=== PATIENT | female | born 2000 | race African-American/Black ===

== ENCOUNTER 2024-12-19 00:40 | Day surgery (SDC) | payer OTHER, SELFPAY ==
--- NOTE | 2024-12-10 14:55 | SUR.PREOP ---
[facility] has started construction of its new state of the art ER which will open Spring 2026. With this, we anticipate parking may be a challenge for some our surgical patients and families. Parking spaces are limited but are available for all Surgical, obstetrics, and ER patients sharing this lot. If you arrive and find you are having a hard time finding a parking space, please note that we understand the challenges, please drive around the hospital and park near Hospital Entrance 1. When you enter this entrance, you can ask a volunteer to direct or take you back to the surgical waiting area to check in. We appreciate everyone?s understanding of these expected challenges while we build for your future. Report to the Outpatient Waiting Room, entrance under the green pavilion located off [address], at time _6AM__ on date _12/19/24__. Planned Procedure Time: __730AM__.? Time changes happen often and if your time is changed the preop area will call you the afternoon before. - You and your visitor will be asked to self-screen and do not enter if you have any COVID symptoms. Please call surgeon if you need to reschedule. - A mask is optional within the hospital at this time. Patients may have clear liquids (water, carbonated beverages, clear teas, apple juice) until 3 hours prior to surgery with a maximum of 20 ounces. - No food from midnight until time of surgery and no smoking, or chewing tobacco (or any form of nicotine). No chewing gum, candy or mints. Take only the following medications with a SIP of water on the morning of surgery: ___albuterol if needed___ DO NOT STOP ANY OF YOUR OTHER PRESCRIPTION MEDICATIONS PRIOR TO SURGERY EXCEPT THE FOLLOWING Hold all vitamins and supplements for 3 days per anesthesiologist. Medications to discontinue per physician __None__ Date to take last dose__n/a__ Please no make-up, nail faroese, hairspray, perfume, deodorant, or body powder the day of surgery.? No jewelry (including any body piercings) or valuables the day of surgery, leave them at home.? Please take a shower or bath the night before, or the morning of, surgery with an antibacterial soap.? Wear comfortable, loose fitting clothing.? - Jewelry must be removed prior to entering the operating room.? Rings and piercings that are not removed may be cut off. - The hospital will not accept responsibility for valuables.? - Please leave all valuables, including medications, at home the day of surgery. If you are going home after surgery, a licensed bus driver must drive you home.? - NO public transportation without another adult if you receive anesthesia. - We recommend that an adult stay with you for 24 hours following discharge. - We also recommend that you do not drive, make important decision, drink alcoholic beverages, or take any drugs that were not prescribed by your health care provider for at least 24 hours after your discharge time. Follow any additional instructions given to you from your surgeon. Telephone instructions given to __Cirilo and asked if any additional questions and then verbalized understanding. Patient advised to call surgeon office or pre surgery nurse liaison [phone] if any additional questions.
[2024-12-10 15:01] VITALS: BMI 43.5
--- OUTSIDE RECORDS SUMMARY | 2024-12-18 16:30 | XMS_ITS | Encounter Summary ---
Author Organization [facility] Healthcare Address [address] [place] [address] Care Team Providers Care Metal Refiner Name Role Phone Yecenia Kennedy DO Primary Care Provider [phone] Ciara Shafer MD Unavailable [phone] Reason for Visit * Reason Comments PT Treatment * Physical Therapy (Routine) - Authorized Specialty Diagnoses / Procedures Referred By Alberto cardona Referred To Contact Physical Therapy Diagnoses Chronic left-sided low back pain with left-sided sciatica Yecenia Kennedy DO [address] [address] Phone: tel: fax: [facility] OP Physical Therapy [address] [place] [address] Phone: tel: fax: Referral ID Status Reason Start Date Expiration Date Visits Requested Visits Authorized [id number] Authorized Specialty Services Required 01/18/2025 16 13 Encounter Details Date Type Department Care Team (Late st Contact Info) Description 12/18/2024 4:30 PM NATURAL RESOURCE SPECIALIST Therapy [facility] OP Physical Therapy [address] [place] [address] Archana Coombs, FURNITURE STAINER Chronic left-sided low back pain with left-sided sciatica (Primary Dx) Social History Tobacco Use Types Packs/Day Years Used Date Smoking Tobacco: Never Smokeless Tobacco: Never Alcohol Use Standard Drinks/Week Comments Yes 0 (1 standard drink = 0.6 oz pur e alcohol) PHQ-2 Answer Date Recorded PHQ-2 Total Score 0 10/30/2024 PHQ-9 Answer Date Recorded PHQ-9 Total Score 1 10/30/2024 AUDIT-C Answer Date Recorded Q1: How often do you have a drink containing alc ohol? Monthly or less 10/30/2024 Q2: How many drinks containi ng alcohol do you have on a typical day when you are drinking? 1 or 2 10/30/2024 Q3: How often do you have si x or more drinks on one occasion? Never 10/30/2024 Personal Safety Answer Date Recorded Have you ever been in or are you currently in a harmful physical or emotional relationship or is someone making you feel afraid or unsafe? Denies 06/14/2024 Comments No Sex and Gender Information Value Date Recorded Sex Assigned at Not on file Legal Sex Female 2:09 AM NATURAL RESOURCE SPECIALIST Gender Identity Not on file Sexual Orientation Not on file documented as of this encounter Progress Notes * Archana Coombs, FURNITURE STAINER - 12/18/2024 4:30 PM CST ICD-10-CM 1. Chronic left-sided low back pain with left-sided sciatica M54.42 Ambulatory referral order to Physical Therapy - G89.29 YECENIA KENNEDY PT Diagnosis/Impairment List: low back pain, sacroiliac dysfunction, core weakness, RA separation at the umbilicus, hip weakness Precautions: standard Relevant Comorbidities: Asthma, sickle cell trait, Short-Term Goals: to be met by 12/26/24 Patient will be instructed in HEP Patient will maintain a level pelvis to improve upright posture Patient will improve intra pelvic motion to improve upright posture Long-Term Goals: to be met by 01/23/25 Patient will be independent in HEP (new and revised). Patient will improve the score on the Oswestry Low Back Questionnaire from 9 Patient will improve core strength from baseline Patient will improve hip strength from baseline Patient will report a reduction in low back pain while cooking Patient Goal: get rid of low back pain PT Eval Date: 11/28/24 Orders : 01/23/25 INITIAL CERTIFICATION DATES: From 11/28/24 to 01/23/2025 (8 weeks) Date Date Date Date Date 11/28/24 12/07/24 12/11/24 12/13/24 12/18/24 Visit Number 1 2 3 4 5 Pn 04/23 ADDITIONAL HEP SHEETS ISSUED yes HEP *progress as able Education: good body mechanics Other Education Topics 1)pelvic stability exercise: hip abd on belt and hip add on ball-10 x, HEP 2)good body mechanics education: practiced log rolling 3) scar massage daily in shower until 12/14/24 Teach Neutral spine position for TA exercises scar IASTM instrument soft tissue mob with deep prep and cupping X 1 min Check Pelvis Levels Left innominate appears to be in an up slip Neuro Re education MET muscle energy technique Supine: resisted L heel press down and R hip hike up-5 x *then resisted hip abduction 5 x *then resisted hip adduction 5 x then 5 more times with hip in int rot *level pelvis Manual Therapy *soft tissue *myofascial release *other ideas Electrical Stimulation to low back for pain *add heat Mat Exercises: Glut max/medius strengthening Bridge 15x w/TA activation Clamshells 20x Prone hip extension 15x min cues for technique Bridge 15x w/TA activation Clamshells 20x Prone hip extension 15x min cues for technique Bridge X10 w/TA Clams 2x10 B Prone hip extension x10 ea Bridge with lac 10x Clams 20x Phe 10x ea Mat Exercises: TA, RA, Int/ext Oblique Strengthening *TA progression to BKFO to marching TA 20x Diagonal crunches 10x each way; min cues for technique TA 20x Diagonal crunches 10x each way; min cues for technique TA 20x Diagonal crunches x10 Ea way Ppt 10x 10 sec hold Ppt with crunches 10x ea Marching with lac 10x Bkfo with lac 10x Standing at theraband wall: engage TA, neutral spine *Pallof press *other ideas Red TB Pulldowns 10x Green TB pulldowns 10x Pallof press 15x each direction Chops w/6# 10x each way Red TB Pulldowns 10x Green TB pulldowns 10x Pallof press 15x each direction Wood chops 20#10x each way [place] small engine trainer GTB Pull downs 10x2 GTB rows 10x2 GTB pallof x15 Green Pull downs 20x Row 20x Palloff 15x Core pulls 15x Other exercise ideas Danish ball Blue: PPT 20x Side to side 20x Marching 10x each LE CW/CCW circles 10x Piriformis stretch 3x 30 sec Danish ball Blue: PPT 20x Side to side 20x Marching 10x each LE CW/CCW circles 10x Danish ball blue:20x all motions Marching x10 Piriformis stretch 3x 30 sec Blue Bounce Ant/post Lat shift Ccw/ccw Green ball at wall Mini squat with PPT and glut squeeze x 15 sec 10x 15x 15x Progress Note/Re-Cert RAL RESOURCE SPECIALIST * Archana Coombs PTA - 12/18/2024 4:30 PM CST Images from the original note were not included. Physical Therapy Visit/Daily Note 12/18/2024 Randymickiemargarita Muniz 2000 ICD-10-CM 1. Chronic left-sided low back pain with left-sided sciatica M54.42 G89.29 YEECNIA KENNEDY [employer] Professional [employer] Utilized: NO Patient is identified by name and date of on this visit. Subjective: Pt reports she is a little more sore on the left side. She tried to hop up on the counter. Pt is reporting continued difficulty with standing and walking too long. Pt is only able to stand for maybe an hour before the pain starts. Pt is able to walk about 30 min before she feels pain. Pain today is 2/10. Pain level depends on the activity of the day Changes since last visit include feeling like she is having less pain. Objective: Objective Measurement/Observation: pt is independent and shows no difficulty with gait, transfers, and bed mobility. Pt performed ex as outlined with verbal cues for lac with ex's. Cont to note weakness in the core and lower extremities. Pt fatigues quickly and needs rest periods with ex's Specific exercises and treatment interventions are outlined on exercise worksheet document. Treatment Performed on This Visit: Manual Therapy (body part and techniques): nt Therapeutic Procedure/Exercise:ex for improved core strength Modalities:nt HEP given:pt is performing her ex's at least once a day. Tries to do them when she can Patient education: instructed pt to speak to her sx after her sx tomorrow about when she will be able to resume her core ex's Assessment: The patient demonstrated a fair response to today's treatment as evidenced by these objective findings: cont's to have low yulisa and endurance for ex's. The patient is making slowed progress toward LTG# 4 as evidenced by cont'd weakness in the hips and core. The patient continues to demonstrate deficits with low back pain. Plan: Patient is having breast reduction sx tomorrow. Will hold on therapy for now. If this is the last physical therapy visit, this note will serve as the discharge summary. Archana Coombs PTA [facility] ATTENTION PHYSICIAN If you are unable to electronically sign this document, please print this document and sign below to certify this plan of care/treatment plan. By signing this document, I certify that I have reviewedthis plan of care and support the treatment. Please fax back to . Thank you. Provider Signature: Date: RAL RESOURCE SPECIALIST documented in this encounter Plan of Treatment Not on file documented as of this encounter Visit Diagnoses Diagnosis Chronic left-sided low back pain with left-sided sciatica- Primary documented in this encounter Care Teams Metal Refiner Relationship Specialty Start Date End Date Yecenia Kennedy DO [address] [place] [address] PCP - General Family Medicine 06/14/24 Ciara Shafer MD [address] [place] [address] Obstetrics and Gynecology 06/18/24 documented as of this encounter
[2024-12-19] VITALS (11 sets, daily range): BP systolic 110–131; BP diastolic 65–84; PULSE 87–113; RESP 13–16; TEMP 36.1–36.2; O2SAT 95–100
--- OUTSIDE RECORDS SUMMARY | 2024-12-19 00:45 | XMS_ITS | Encounter Summary ---
Author Organization [facility] Healthcare Address [address] [place] [address] Care Team Providers Care Chemical Educator Name Role Phone Yecenia Kennedy DO Primary Care Provider [phone] Ciara Shafer MD Unavailable [phone] Reason for Visit * Reason Onset Date Comments Medical Question/Miscellaneous 12/03/2024 Encounter Details Date Type Department Care Team (Late st Contact Info) Description 12/03/2024 Telephone [facility] Family Medicine at [address] [address] Yecenia Kennedy DO [address] [place] [address] Medical Question/Miscellaneous Social History Tobacco Use Types Packs/Day Years [...] on file Legal Sex Female 2:09 AM LAWN CARE PROFESSIONAL Gender Identity Not on file Sexual Orientation Not on file documented as of this encounter Miscellaneous Notes * Telephone Encounter - Jorje Cardoza RN - 12/03/2024 11:52 AM CDT noted * Telephone Encounter - Te Barnard - 12/03/2024 11:48 AM CDT Medical Question/Miscellaneous Caller???s Concern: Spoke with patient calling to advise pcp that she has been approved for breast reduction surgery and will find out next Tuesday when that will be. Patient will follow up as needed Does message need to be routed? Yes-FYI Only documented in this encounter Plan of Treatment Not on file documented as of this encounter Visit Diagnoses Not on filedocumented in this encounter Care Teams Chemical Educator Relationship Specialty Start Date End Date Yecenia Kennedy DO [address] [place] [address] PCP - General Family Medicine 06/14/24 Ciara Shafer MD [address] [place] [address] Obstetrics and Gynecology 06/18/24 documented as of this encounter
--- OUTSIDE RECORDS SUMMARY | 2024-12-19 00:45 | XMS_ITS | Encounter Summary ---
Author Organization [facility] Healthcare Address [address] [place] [address] Care Team Providers Care Rolling Machine Tender Name Role Phone Yecenia Kennedy DO Primary Care Provider +- [phone] Ciara Shafer MD Unavailable [phone] Encounter Details Date Type Department Care Team (Late st Contact Info) Description 11/04/2024 Results Follow-Up [facility] Family Medicine at [address] [phone] Yecenia Kennedy DO [address] [place] [address] Hemoglobin A1c, Lipid panel, Urinalysis reflex to microscopic and culture Urine, clean voided, Additional followed-up results: 3 Social History Tobacco Use Types Packs/Day Years [...] on file Legal Sex Female 2:09 AM CONVALESCENT SITTER Gender Identity Not on file Sexual Orientation Not on file documented as of this encounter Ordered Prescriptions Prescription Sig Dispense Quantity Refills Last Filled Start Date End Date ergocalciferol (VITAMIN D) 50,000 unit capsuleIndications :Vitamin D Deficiency Take 1 capsule (50,000 Units total) by mouth once a week 12 capsule 11/04/2024 documented in this encounter Plan of Treatment Scheduled Orders Name Type Priority Associated Diagnoses Orde r Schedule Vitamin D 25 hydroxy Lab Routine Vitamin D deficiency Expected: 01/04/2025, Expires: 03/06/2025 documented as of this encounter Visit Diagnoses Diagnosis Vitamin D deficiency- Primary documented in this encounter Care Teams Rolling Machine Tender Relationship Specialty Start Date End Date Yecenia Kennedy DO [address] [place] [address] PCP - General Family Medicine 06/14/24 Ciara Shafer MD [address] [place] [address] Obstetrics and Gynecology 06/18/24 documented as of this encounter
--- OUTSIDE RECORDS SUMMARY | 2024-12-19 00:45 | XMS_ITS | Clinical Summary ---
Author Organization [place] [id number] [facility] Address [address] [place] [address] Care Team Providers Care Health Sciences Dean Name Role Phone Yecenia Kennedy Primary Care Provider [phone] Ciara Shafer MD Unavailable [phone] Allergies No known active allergies Medications etonogestreL (NEXPLANON) 68 mg implantIndicatio ns: Contraception by subdermal route Active inhalational spacing device (Aerochamber MV) spacerIndication s:Mild persistent asthma without complication 1 Device daily 1 each 06/19/19 25 Active albuterol HFA (PROVENTIL HFA,VENTOLIN HFA,PROAIR HFA) 90 mcg/actuation inhalerIndicatio ns:Mild persistent asthma without complication Inhale 2 puffs every 4 (four) hours as needed for wheezing or shortness of breath 3 each 3 10/31/19 25 026 Active cetirizine (ZyrTEC) 10 mg tabletIndication s:Mild persistent asthma without complication,Non -seasonal allergic rhinitis, unspecified trigger Take 1 tablet (10 mg total) by mouth daily as needed for allergies 90 tablet 3 10/31/19 25 026 Active fluticasone propionate (FLONASE) 50 mcg/actuation nasal sprayIndications :Non-seasonal allergic rhinitis, unspecified trigger Administer 2 sprays into each nostril daily 3 each 4 10/31/19 25 Active ergocalciferol (VITAMIN D) 50,000 unit capsuleIndicatio ns:Vitamin D Deficiency Take 1 capsule (50,000 Units total) by mouth once a week 12 capsule 11/05/19 25 026 Active tirzepatide, weight loss, (Zepbound) 2.5 mg/0.5 mL pen injectorIndicati ons:Weight Loss Management for Obese Patient (BMI >= 30),E66.813, Z68.41, J45.30, M54.42, G89.29 Inject 0.5 mL (2.5 mg total) under the skin every 7 days 2 mL 11/15/19 25 025 Discontinued Active Problems Problem Noted Date Diagnosed Date Prediabetes 10/30/2024 Chronic left-sided low back pain with left-sided sciatica 10/30/2024 Astigmatism 10/30/2024 Neck pain 10/30/2024 Macromastia 10/30/2024 ASCUS of cervix with negative high risk HPV 06/2024 Foot pain, bilateral 06/18/2024 Nonintractable episodic headache 06/18/2024 Class 3 severe obesity due t o excess calories without serious comorbidity with body mass index (BMI) of 40.0 to 44.9 in adult 06/18/2024 Memory impairment 06/18/2024 Anemia 06/18/2024 Allergic rhinitis due to allergen 06/18/2024 Flat feet, bilateral 06/18/2024 Sickle cell trait 06/18/2024 History of COVID-19 06/18/2024 H/O chlamydia infection 08/28/2020 Mild persistent asthma 08/19/2015 Vitamin D deficiency 10/26/2012 Overview (06/14/2024): 10/26/2012- Vitamin D is over 16. A letter is to be sent explaining the need for Vitamin D of 50,000 IU every two weeks with 6 refills and Calcium citrate 475 mg twice a day. This may help with bleeding. Will monitor levels in the future. Acquired acanthosis nigricans 10/25/2012 Overview (06/14/2024): Positive acanthosis and has stopped sugar drinks. Check hgb a1c. To increase exercise. BMI greater than 98%. Resolved Problems Problem Noted Date Diagnosed Date Resolved Date demise before 22 weeks with retention of fetus 11/08/2020 06/18/2024 Cystitis 08/28/2020 06/18/2024 Dysfunctional uterine bleeding 10/25/2012 06/18/2024 Overview (06/14/2024): Heavy menses since menarche requiring her to change clothes and miss school days. Screen for bleeding disorder, thyroid and anemia ordered Desogen started and with a negative test. Denies sexual activity. Encounters Date Type Department Care Team Description 12/18/2024 4:30 PM REIMBURSEMENT SPECIALIST Therapy [facility] OP Physical Therapy [address] [place] [address] Archana Coombs, MANAGER ENTERPRISE Chronic left-sided low back pain with left-sided sciatica (Primary Dx) 12/13/2024 3:45 PM CDT Therapy [facility] OP Physical Therapy [address] [place] [address] Lori Carver, MANAGER ENTERPRISE Chronic left-sided low back pain with left-sided sciatica (Primary Dx) 12/11/2024 4:30 PM CDT Therapy [facility] OP Physical Therapy [address] [place] [address] Patti Smith, MANAGER [employer]TERPRISE Chronic left-sided low back pain with left-sided sciatica (Primary Dx) 12/07/2024 3:45 PM CDT Therapy [facility] OP Physical Therapy [address] [place] [address] Anabella Banegas, MANAGER ENTERPRISE Chronic left-sided low back pain with left-sided sciatica (Primary Dx) 12/03/2024 Telephone [facility] [place] [address] [facility] [address] [place] [phone] Yecenia Kennedy, DO Medical Question/Miscellaneou s 11/28/2024 9:45 AM CDT Therapy [facility] OP Physical Therapy [address] [place], [place] [address] [address] Yessica Estrada, PT Chronic left-sided low back pain with left-sided sciatica 11/28/2024 Plan of Care Documentation [facility] OP Physical Therapy [address] [facility] [address] [place] [address] 11/14/2024 Orders Only [facility] [address] [facility] [address] [place] [address] Yecenia Kennedy, Class 3 severe obesity due to excess calories without serious comorbidity with body mass index (BMI) of 40.0 to 44.9 in adult (Primary Dx); Mild persistent asthma without complication; Chronic left-sided low back pain with left-sided sciatica 11/14/2024 Telephone [facility] [address] [facility] [address] [place] [address] Yecenia Kennedy DO Obesity 11/08/2024 Telephone [facility] [place] [address] [facility] [address] [place] [address] Yecenia Kennedy DO 11/04/2024 Results Follow-Up [facility] [place] [address] [facility] [address] [place] [address] Yecenia Kennedy, Hemoglobin A1c, Lipid panel, Urinalysis reflex to microscopic and culture Urine, clean voided, Additional followed-up results: 3 10/31/2024 Orders Only [facility] Medicine Surgery [address] [facility] [address] [place] [address] Dwayne Bowens, DPM Pain in left foot (Primary Dx); Pain in right foot 10/31/2024 Telephone [facility] [place] [address] [facility] [address] [place] [address] Yecenia Kennedy DO Referral Request 10/30/2024 3:35 PM CDT Lab [facility] [address] [place] [address] Prediabetes; Encounter for lipid screening for cardiovascular disease; Screening for blood or protein in urine; Need for hepatitis C screening test; Vitamin D deficiency 10/30/2024 3:00 PM CDT Office Visit [facility] [place] [address] [facility] [address] [place] [phone] Yecenia Kennedy DO Annual physical exam (Primary Dx); Mild persistent asthma without complication; Non-seasonal allergic rhinitis, unspecified trigger; Prediabetes; Chronic left-sided low back pain with left-sided sciatica; Neck pain; Nonintractable episodic headache, unspecified headache type; Macromastia; Astigmatism, unspecified laterality, unspecified type; Foot pain, bilateral; Flat feet, bilateral; Vitamin D deficiency; Class 3 severe obesity due to excess calories without serious comorbidity with body mass index (BMI) of 40.0 to 44.9 in adult; Encounter for lipid screening for cardiovascular disease; Screening for blood or protein in urine; Need for hepatitis C screening test from Last 3 Months Immunizations Immunization Administration Dates Next Due DTP 02/27/2002,2000,2000 DTaP 10/15/2004,2000 HPV, Quadrivalent 11/15/2011,01/04/2011 HPV9 09/26/2014 Hep A, Pediatric 04/01/2006,10/15/2004 Hep B / HiB 2000 Hep B, Adolescent or Pediatric 09/27/2005,2000,2000 HiB 08/29/2001,2000 IPV 10/15/2004, 1,2000,02/22 Influenza, Split 10/13/2010,10/23/2009 Influenza, Trivalent, Preser vative Free, Intramuscular 11/15/2011 Influenza, Unspecified 10/29/2024(Deferr ed: Patient Refused),06/18/2024(Deferred: Patient Refused) MMR 10/15/2004,08/29/2001 Meningococcal B, OMV (Bexsero) 07/06/2018,2017 Meningococcal MCV4P (Menactra) 10/13/2016,2010 Pneumococcal Conjugate 7-Valent 08/29/2001,09/27,2000 Tdap 01/04/2011 Varicella 12/16/2008,08/29/2001 Surgical History Surgery Date Site/Laterality Comments SECTION Medical History Medical History Date Comments Asthma Allergic Prediabetes Sickle cell trait Family History Medical History Relation Name Comments Breast cancer Maternal Grandmother Breast cancer Mother Depression Mother's Sister Colon cancer Neg Hx Ovarian cancer Neg Hx Pancreatic cancer Neg Hx Prostate cancer Neg Hx Uterine cancer Neg Hx Relation Name Status Comments Maternal Grandmother Mother (Age 47) Mother's Sister Social History Tobacco Use Types Packs/Day Years [...] on file Legal Sex Female 2:09 AM REIMBURSEMENT SPECIALIST Gender Identity Not on file Sexual Orientation Not on file Obstetrics History Para Term AB IAB SAB Ectopic Multiple Livin g Live Births 2 2 1 1 1 1 Date Outcome GA Total Labor Labor/2nd/3rd Weight Sex Type Anes PTL Simona A1 A5 Name Clin 2016 Term F CS-LT ranv Epidur al N Livin g Complications:Cephalopelvic Disproportion 2020 20w 4d 0.114 kg (4 oz) Vag-S pont Epidur al Demis e 0 0 BERGM AN,PE NDING FD Salvatore vega MD Delivery Location:[facility] ([facility]) Last Filed Vital Signs Vital Sign Reading Time Taken Comments Blood Pressure 104/72 10/30/2024 2:39 PM CDT Pulse 93 10/30/2024 2:39 PM CDT Temperature 36.4 C (97.6 F) 10/30/2024 2:39 PM CDT Respiratory Rate 16 10/30/2024 2:39 PM CDT Oxygen Saturation 99% 10/30/2024 2:39 PM CDT Inhaled Oxygen Concentration - - Weight 108.4 kg (239 lb) 10/30/2024 2:39 PM CDT Height 157.5 cm (5' 2) 10/30/2024 2:39 PM CDT Body Mass Index 43.71 10/30/2024 2:39 PM CDT Plan of Treatment Health Maintenance Due Date Last Done Comments Chlamydia and Gonorrhea (GC/CT) Screening 09/11/2023 09/10/2022, 04/06/2021 Cervical Cancer Screening 03/05/2025 03/05/2022, Pneumococcal vaccine <65 (1 of 1 - PPSV23, PCV20, or PCV21) 06/03/2025 08/29/2001, 2000, 2000 Postponed from 12/31/2005 (Patient declined, but will receive in the future) Depression Screening 10/30/2025 10/30/2024, 10/30/2024, 06/18/2024 Regular Well Visit/Exam 18-64 10/30/2025 10/30/2024, 04/06/2021 DTaP/Tdap/Td Vaccine (7 - Td or Tdap) 06/18/2026 01/04/2011, 10/15/2004, 02/27/2002, Additional history exists Postponed from 01/04/2021 (Insurance / Financial) Hepatitis B Screening Completed 09/27/2005 , 2000, 2000, Additional history exists Varicella Vaccines Completed 12/16/2008, 08/29/2001 Influenza Vaccine Discontinued 11/15/2011, , 10/23/2009 HPV Vaccines Completed 09/26/2014, 02/2011, 01/04/2011 Hepatitis C Screening Completed 10/30/2024 Procedures Procedure Name Priority Date/Time Associated Diagnosis Comments VITAMIN D 25 HYDROXY Routine 10/30/2024 3:42 PM CDT Vitamin D deficiency LIPID PANEL Routine 10/30/2024 3:42 PM CDT Encounter for lipid screening for cardiovascular disease HEMOGLOBIN A1C Routine 10/30/2024 3:42 PM CDT Prediabetes HEPATITIS C ANTIBODY Routine 10/30/2024 3:42 PM CDT Need for hepatitis C screening test URINALYSIS, MICROSCOPIC ONLY Routine 10/30/2024 3:39 PM CDT Screening for blood or protein in urine URINALYSIS AND REFLEX TO MICROSCOPIC AND CULTURE Routine 10/30/2024 3:39 PM CDT Screening for blood or protein in urine URINE CHLAMYDIA, GONORRHEA DNA Routine 09/10/2022 11:13 AM CDT from Last 3 Months or Most Recently Relevant to Health Maintenance Results * Hepatitis C antibody Blood (10/30/2024 3:42 PM CDT) Hep C Ab Nonreactive Nonreactive Comment: Antibodies to HCV not detected. Does NOT exclude the possibility of recent exposure to HCV. Current interpretive data was last revised on 21 Interpretive Data Nonreactive: Antibodies to HCV not detected. Does NOT exclude the possibility of recent exposure to HCV. Equivocal: Equivocal for HCV antibodies. Supplemental molecular testing will be automatically performed to determine infection status in accordance with current CDC screening recommendations. Reactive: Positive for HCV antibodies. This may represent current or past HCV infection. Supplemental molecular testing will be automatically performed to determine current infection status in accordance with current CDC screening recommendations. Interpretive data was last revised on 2019. Blood 10/30/2024 3:42 PM CDT 10/30/2024 4:06 PM CDT us Yecenia Kennedy DO LAB MICROBIOLOGY - GENERAL ORDERABLES Final Result [facility] [place] [address] * (ABNORMAL) Vitamin D 25 hydroxy (10/30/2024 3:42 PM CDT) [facility] Vitamin D 25-OH 19.0(L) 30.0 - 80.0 ng/mL Blood 10/30/2024 3:42 PM CDT 10/30/2024 4:06 PM CDT Yecenia Adamestorm Kennedy LAB BLOOD ORDERABLES Final Result Performing Organization Address [facility] de Phone Number [address] [address] * (ABNORMAL) Hemoglobin A1c (10/30/2024 3:42 PM CDT) [facility] Hgb A1C 5.7(H) 4.0 - 5.6 % Estimated Average Glucose 117 mg/dL [facility] Comment: The ADA recommends reporting an estimated Average Glucose (eAG) with all Hemoglobin A1c results using the equation derived from a study of 507 normal and diabetic adults. Minority populations were underrepresented and children were not included. (Diabetes Care 31:3314-7268, 2008). The eAG is not equivalent to a fasting glucose. Blood 10/30/2024 3:42 PM CDT 10/30/2024 4:06 PM CDT Yecenia Armando Kennedy LAB BLOOD ORDERABLES Final Result Performing Organization Address City/[facility] Co de Phone Number [address] [address] * Lipid panel (10/30/2024 3:42 PM CDT) [facility] Cholesterol 163 30 - 199 mg/dL Comment: Interpretive Data Ages < or = 19 years Acceptable: <170 mg/dL Borderline high: 170-199 mg/dL High: >or= 200 mg/dL Ages > or = 20 years Desirable: <200 mg/dL Borderline high: 200-239 mg/dL High: >or= 240 mg/dL Literature References: 1. Expert Panel on Integrated Guidelines for Cardiovascular Health and Risk Reduction in Children and Adolescents. Pediatrics 2011;128:S213 2. NCEP Expert Panel. Circulation 2004;110:227 Current Interpretive Data was last revised on 2017. Triglycerides 92 <=149 mg/dL [facility] Comment: Interpretive Data Ages < or = 9 years Acceptable: <75 mg/dL Borderline high: 75-99 mg/dL High: >or= 100 mg/dL Ages 10 to 20 years Acceptable: <90 mg/dL Borderline high: 90-129 mg/dL High: >or= 130 mg/dL Ages > or = 20 years Desirable: <150 mg/dL Borderline high: 150-199 mg/dL High: 200-499 mg/dL Very high: >or= 499 mg/dL Literature References: 1. Expert Panel on Integrated Guidelines for Cardiovascular Health and Risk Reduction in Children and Adolescents. Pediatrics 2011;128:S213 2. NCEP Expert Panel. Circulation 2004;110:227 Current Interpretive Data was last revised on 2017. HDL 45 >=40 mg/dL [facility] Comment: Interpretive Data Ages < or = 19 years Acceptable: >45 mg/dL Borderline low: 40-45 mg/dL Low: <40 mg/dL Ages > or = 20 years Desirable: >or= 60 mg/dL Low: <40 mg/dL Literature References: 1. Expert Panel on Integrated Guidelines for Cardiovascular Health and Risk Reduction in Children and Adolescents. Pediatrics 2011;128:S213 2. NCEP Expert Panel. Circulation 2004;110:227 Current Interpretive Data was last revised on 2017. LDL, calculated 101 <=129 mg/dL [facility] Comment: Interpretive Data Ages < or = 19 years Acceptable: <110 mg/dL Borderline high: 110-129 mg/dL High: >or= 130 mg/dL Ages > or = 20 years Optimal: <100 mg/dL Near optimal: 100-129 mg/dL Borderline high: 130-159 mg/dL High: >160 mg/dL Calculated using the Ford LDL-C estimating equation. This equation was implemented on 2023. Prior to this date LDL-C was estimated using the Friedewald equation. Literature References: 1. Expert Panel on Integrated Guidelines for Cardiovascular Health and Risk Reduction in Children and Adolescents. Pediatrics 2011;128:S213 2. NCEP Expert Panel. Circulation 2004;110:227 3. Ford M et al. ADRIEN Cardiol. 2020 June 14;5(5):540-548. doi: 10.1001/jamacardio.2020.0013 Current Interpretive Data was last revised on 2023. Non-HDL Cholesterol 118 mg/dL [facility] Comment: Interpretive Data Ages < or = 19 years Acceptable: <120 mg/dL Borderline high: 120-144 mg/dL High: >145 mg/dL Ages > or = 20 years When triglycerides are >200 mg/dL, Non-HDL cholesterol is a secondary target of therapy with treatment goals that are 30 mg/dL greater than the LDL cholesterol target. Literature References: 1. Expert Panel on Integrated Guidelines for Cardiovascular Health and Risk Reduction in Children and Adolescents. Pediatrics 2011;128:S213 2. NCEP Expert Panel. Circulation 2004;110:227 Current Interpretive Data was last revised on 2017. Chol/HDL ratio 4 [facility] Blood 10/30/2024 3:42 PM CDT 10/30/2024 4:06 PM CDT us Yecenia Kennedy DO LAB BLOOD ORDERABLES Final Result [facility] [address] [facility] Department [place] [address] * (ABNORMAL) Urinalysis reflex to microscopic and culture Urine, clean voided (10/30/2024 3:39 PM CDT) Color, ur Yellow Yellow Clarity, ur Cloudy(A) Clear [facility] Specific gravity, ur 1.020 1.003 - 1.030 [facility] pH, urine 5.0 [facility] Comment: Interpretive Data U rine pH is affected by diet, medications, systemic acid-base disturbances, and renal tubular function. pH may affect urinary stone formation. For example, urine pH below 6.0 may help reduce the tendency for calcium phosphate stones and pH greater than 6.0 may reduce the tendency for uric acid stone formation. Source: [employer] Current Interpretive Data was last revised on 2017 Protein, ur ql Negative Negative [facility] Glucose, ur ql Negative Negative [facility] Ketones, ur Trace Negative [facility] Bilirubin, ur Negative Negative [facility] Blood, ur 1+(A) Negative [facility] Urobilinogen, ur <2.0 <2.0 mg/dL [facility] Nitrite, ur Negative Negative [facility] Leukocyte esterase, ur 3+(A) Negative [facility] UA reflex comment Reflex to microscopic UA will be performed. [facility] Urine, clean voided 10/30/2024 3:39 PM CDT 10/30/2024 4:07 PM CDT Narrative [facility] - 10/30/2024 4:13 PM CDT Urine Collection Method->Clean Catch Yecenia Kennedy DO LAB MICROBIOLOGY - GENERAL ORDERABLES Final Result Performing Organization Address [facility] de Phone Number [address] [facility] [place], [place] [id number] * (ABNORMAL) Urinalysis, microscopic only (10/30/2024 3:39 PM CDT) WBC, ur 6-10(A) 0 - 5 /HPF RBC, ur 0-2 0 - 2 /HPF [facility] Epithelial cells, squamous, ur 6-10(A) 0 - 5 /HPF [facility] Comment:Suggestive of contam ination. Consider recollection by clean catch. Bacteria, ur 1+(A) [facility] Culture Reflex Comment Reflex conditions for urine culture (WBC >10) not met. [facility] Urine, clean voided 10/30/2024 3:39 PM CDT 10/30/2024 4:07 PM CDT Yecenia Kennedy DO LAB URINE ORDERABLES Final Result Performing Organization Address [facility] Co de Phone Number [address] [facility] [place], [place] [id number] * Urine Chlamydia, Gonorrhea DNA (09/10/2022 11:13 AM CDT) Historical Provider LAB BLOOD ORDERABLES Elicia ruffin Result [facility] from Last 3 Months or Most Recently Relevant to Health Maintenance Insurance [facility] IDPA Care Teams Health Sciences Dean Relationship Specialty Start Date End Date Yecenia Kennedy DO [address] [place] [address] PCP - General Family Medicine 06/14/24 Ciara Shafer MD [address] [place] [address] [place] [id number] Obstetrics and Gynecology 06/18/24
[2024-12-19] MEDS: ACETAMINOPHEN 500 MG TABLET 1000 MG PO (06:30)
--- NOTE | 2024-12-19 06:30 | P.HPUP_ITS ---
History and Physical Update Update Date/Time: 12/19/24 06:30 Patient seen and examined in pre-operative holding area. No interval change in medical history or symptoms. Patient remembers previous discussion of benefits and alternatives to procedure. Continues to desire to proceed with bilateral breast reduction . I reviewed the risks including but not limited to bleeding ,infection, asymmetry, undesireable cosmetic appearance, partial/total skin/nipple loss, no change or worsening of symptoms, change in sensation. I discussed the possible use of assistants and their level of participation in the case. Patient stated understanding and signed the consent form wishing to pr oceed
--- NOTE | 2024-12-19 06:31 | W.PM.PROC2 ---
Procedure Note - Detailed Date of Procedure 12/19/24 Pre-op Diagnosis Bilateral Breast Hypertrophy Post-op Diagnosis Same Procedure Performed b/l breast reduction Surgeon Shadi Chandler MD Communications Tower Technician Jose Ramon Taylor PA-C Anesthesia General Description of Procedure Patient was seen in the preoperative holding area where the consent form was signed and the breasts were marked for an inferior pedicle Kerr pattern reduction. Patient was taken back to the operating room and placed on the table in the supine position. Time-out was performed with Anesthesia, surgeon, staff agreeing on patient's name, site, and surgery to be performed. SCDs were placed on the lower extremities and inflated. Antibiotics were given IV. After general anesthesia was administered the breasts were prepped and draped in the usual sterile fashion. I took my attention to the right breast where I used a saline moistened lap pad and Jaya clamp to create a breast tourniquet. I used a 38 mm nipple Sizer to circumscribe the nipple-areolar complex. I proceeded with de epithelializing an 8 cm wide inferior pedicle and then made my other skin incisions with 15 blade scalpel. I used Bovie cautery to elevate my superior skin flaps and Dragan's plane down to the chest wall. I proceeded with resection of 1174g of tissue from the right breast. Irrigated with normal saline and hemostasis with Bovie cautery. I plicated the pedicle with 2-0 Vicryl suture. I secured the T-junction with 2-0 Prolene. 3-0 Vicryl was used for dermal closure. The nipple was brought out 5 cm above the inframammary fold the most prominent portion of the breast at the breast midline and secured with 3-0 Vicryl suture. 4-0 Monocryl was used for subcuticular closure. I injected 20 cc of 1% lidocaine with epinephrine and 0.5% Marcaine plain along the inframammary fold and anterior axillary line. I took my attention to the left breast where the same procedure was performed.I used a saline moistened lap pad and Jaya clamp to create a breast tourniquet. I used a 38 mm nipple Sizer to circumscribe the nipple-areolar complex. I proceeded with de epithelializing an 8 cm wide inferior pedicle and then made my other skin incisions with 15 blade scalpel. I used Bovie cautery to elevate my superior skin flaps and Dragan's plane down to the chest wall. I proceeded with resection of 1704g of tissue from the left breast. Irrigated with normal saline and hemostasis with Bovie cautery. I plicated the pedicle with 2-0 Vicryl suture. I secured the T-junction with 2-0 Prolene. 3-0 Vicryl was used for dermal closure. The nipple was brought out 5 cm above the inframammary fold the most prominent portion of the breast at the breast midline and secured with 3-0 Vicryl suture. 4-0 Monocryl was used for subcuticular closure. I injected 20 cc of 1% lidocaine with epinephrine and 0.5% Marcaine plain along the inframammary fold and anterior axillary line. There was reasonable size, shape, and symmetry to the reduced breast. The skin flaps and nipples appeared viable with good cap refill. A dressing of Mastisol, Steri-Strips, 4 x 4, ABDs and a surgical bra was then applied. The patient was awakened from anesthesia and transferred to the recovery room in stable condition. Complications: None Estimated blood loss: 40 cc Disposition: Patient tolerated the procedure well and will go home later today Jose Ramon Taylor PA-C was essential for positioning, retraction, closure and dressing placement. [facility] [place] Billing Surgery - Charge Forward: Surgery Billing ([id number] same for jose ramon adding )
[2024-12-19] MEDS: LACTATED RINGERS 1,000 ML 30 ML IV CONT ×2 (06:35→10:02)
--- NOTE | 2024-12-19 07:13 | P.PNAN_ITS ---
Anes - Initial Pre Proc Eval Procedure: Operation Date: 12/19/24 07:30 Proposed Procedures p Bilateral Breast Reduction - Shadi Chandler MD Date/Time: 12/19/24 07:13 Surgeon: Shadi Chandler MD Pre Op Diagnosis: Bilateral Breast Hypertrophy Patient Data Age: 24 Gender: F Height: 1.57 m Weight: 107 kg Last Vital Signs Temp 97.2 F L 12/19/24 06:15 Pulse 113 H 12/19/24 06:15 Resp 16 12/19/24 06:15 BP 131/83 12/19/24 06:15 Pulse Ox 100 12/19/24 06:15 O2 Del Method Room Air 12/19/24 06:15 Allergies Allergy/AdvReac Type Severity Reaction Status Date / Time No Known Allergies Allergy Verified 12/18/24 11:07 Home Medications ?Medication ?Instructions ?Recorded ?Confirmed ?Type albuterol sulfate 90 mcg/actuation 2 puff inhalation Q 4-6H PRN asthma 12/10/24 12/10/24 History aerosol inhaler cetirizine 10 mg tablet 10 mg PO DAILY 12/10/2407/08 History ergocalciferol (vitamin D2) 1,250 50,000 unit PO WEEKL Y 12/10/24 12/19/24 History mcg (50,000 unit) capsule etonogestrel 68 mg subdermal 1 implant subdermal ONCE 12/10/24 12/19/24 History implant (Nexplanon) cephalexin 500 mg capsule 500 mg PO Q12H #14 caps 07/08 Rx hydrocodone 5 mg-acetaminophen 325 1 tablet PO Q6H PRN pain #16 tabs 12/19/24 Rx mg tablet Patient hx anesthesia problems: none Family hx anesthesia problems: none Results Review: All pre-operative results and documents have been reviewed as part of the pre- operative evaluation. [facility] Social History Social History Social History: Caffeine-occasionally Smoking status: Never smoker Alcohol intake: never Substance use: never Substance use type: does not use Living arrangements: with family Spiritual care concerns: No Anes - Eval Final PreProcedure Day of Procedure 12/19/24 07:13 Patient weight: obese Lungs: normal air movement Airway: Mallampati scale class II Neurological: alert and oriented and other (Eyes noted to have dysconjugate gaze. ) Last oral intake: >/= 8 hours ASA classification: III Emergent: no Anesthetic plan: proceed Anesthesia type and monitoring: general ETT and standard monitoring Results Review: All pre-operative results and documents have been reviewed as part of the pre- operative evaluation. BMI 43, pre DM, pt w noted dysconjugate gaze that has been present since 19 yo. Informed Consent: The patient's anesthetic plan and its attendant risks and benefits were discussed with the patient/family/POA. Questions were solicited and answers provided to the satisfaction of the patient/family/POA.
[2024-12-19] MEDS: ceFAZolin 2 GM in SODIUM CHLORIDE 0.9% IV 50 ML 100 ML IVPB (07:29)
[2024-12-19] MEDS: LIDO 1%/EPINEPHRINE 1:100,000 20 ML VIAL 30 ML INFILTRATE (08:26)
--- NOTE | 2024-12-19 08:39 | S_PTH ---
PATIENT: Cirilo Muniz LOC: [facility] U#:[id number] AGE/SX: 24/F ROOM: RE12/19/[address]: Shadi Chandler MD : [id number] BED: DIS: 12/19/2024 SPEC #: [id number] RECD: 12/19/24 11:14 STATUS: SALLY MENA #: [id number] ZHENG: 12/19/24 08:[address]: Shadi Chandler DEPT: [facility] Surgical RECD BY: Maria Vann ENTERED: 12/19/24 11:14 SP TYPE: Surgical OTHR DR: Yecenia Kennedy, DO Tissues: A - Breast Reduction B - Breast Reduction Procedures: Hematoxylin and Eosin Stain Gross and Microscopic Level 4
[2024-12-19] MEDS: fentaNYL CITRATE INJ (*CRX) 100 MCG/2 ML VIAL 25 MCG IV PUSH ×5 (10:24→10:58)
[2024-12-19] MEDS: oxyCODONE HCL (*CRX) 5 MG TAB IR PO (11:37)
== END 2024-12-19 12:56 | disposition home or self-care (01) ==
PROVIDERS: PCP Family Medicine; Visit Provider Plastic Surgery
PROC: 0HBV0ZZ Excision of Bilateral Breast, Open Approach (ICD-10-PCS; CPT 19318; principal; 2024-12-19 07:30)
DX: N62 Hypertrophy of breast (principal); E11.9 Type 2 diabetes mellitus without complications; E66.9 Obesity, unspecified; Z68.41 Body mass index [BMI] 40.0-44.9, adult; Z79.51 Long term (current) use of inhaled steroids; Z79.891 Long term (current) use of opiate analgesic
CPT/HCPCS: 19318; 88305; J0690; A9270; J1100; J1171; J2003; J2004; J2250; J2405; J2704; J3010; J7120